=== PATIENT | female | born 1945 | race Two or more races ===

== ENCOUNTER 2016-10-23 21:46 | Emergency (ER) | payer OTHER, MEDICAID ==
[~2016-10-23] VITALS: Ht 157.5 cm; Wt 68.0 kg
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
--- NOTE | 2016-10-23 22:16 | NUR ---
DR ROBERT AT BEDSIDE FOR EVAL.
[2016-10-23] MEDS ORDERED: LORAZEPAM 1 MG TABLET ONE (22:28)
[2016-10-23] MEDS ORDERED: LORAZEPAM 1 MG TABLET PO ONE (22:30)
[2016-10-23 23:37] VITALS: BP 148/92
--- NOTE | 2016-10-23 23:37 | NUR ---
Patient discharged to home in stable condition. Written and verbal after care instructions given. Patient verbalizes understanding of instruction.
== END 2016-10-23 23:38 | disposition home or self-care (01) ==
LOC: ER 21:49
DX: F41.9 Anxiety disorder, unspecified (principal); I10 Essential (primary) hypertension
CPT/HCPCS: 71010-TC; A4606; Z7610